=== PATIENT | male | born 1980 | race Caucasian/White ===

== ENCOUNTER 2018-10-03 18:51 | Emergency (ER) | payer OTHER ==
[~2018-10-03] VITALS: Ht 188 cm; Wt 102.1 kg
[~2018-10-03 18:51] MED LIST: CETI10 PO
== END 2018-10-03 20:30 | disposition home or self-care (01) ==
LOC: ER 18:51
DX: S22.22XA Fracture of body of sternum, initial encounter for closed fracture (principal); V89.2XXA Person injured in unspecified motor-vehicle accident, traffic, initial encounter
CPT/HCPCS: 71046; 71120; 93005; 93010; 99283-25